=== PATIENT | female | born 1970 | race Caucasian/White ===

== ENCOUNTER 2016-11-30 10:29 | Emergency (ER) | payer BC, MEDICAID ==
[2016-11-30 11:02] LABS: URINE APPEARANCE CLEAR; URINE BILIRUBIN NEGATIVE (NEGATIVE); URINE BLOOD TRACE-I (NEGATIVE); URINE COLOR YELLOW; URINE GLUCOSE (UA) NEGATIVE (NEGATIVE); URINE KETONE NEGATIVE (NEGATIVE); URINE LEUKOCYTE ESTERASE NEGATIVE (NEGATIVE); URINE NITRITE NEGATIVE (NEGATIVE); URINE PROTEIN NEGATIVE (NEGATIVE); URINE UROBILINOGEN 0.2 E.U./dL (0.20 - 1.00)
--- NOTE | 2016-11-30 11:04 | Emergency Department Record ---
History of Present Illness - General Chief complaint: Flank Pain Stated complaint: FLANK PAIN Time Seen by Provider: 11/30/16 11:03 Source: Patient Mode of Arrival: Ambulatory Limitations: No limitations - History of Present Illness Initial comments: The patient is here due to 5 day hx of R flank pain. The pain is sharp and stabbing and intermittent. She also has had a few days of dysuria and urinary urgency. She has had a week of intermittent nausea, vomiting, and diarrhea. The patient was seen is an UC and sent to the ER to R/O a kidney stone. MD Complaint: Dysuria Onset/Timin -: Days(s) Radiation: R flank Severity: Moderate Severity scale (1-10): 7 Quality: Cramping, Dull, Sharp Consistency: Constant Improves with: Other Worsens with: Movement Associated Symptoms: Fever/chills, Nausea/vomiting - Related Data Home Medications Medication Instructions Recorded Confirmed Last Taken Naratriptan HCl [Amerge] 2.5 mg PO PRN 11/30/16 Unknown Trazodone HCl 100 mg PO PRN 11/30/16 Unknown Previous Rx's Medication Instructions Recorded Nitrofurantoin [place] [Macrobid] 100 mg PO BID #10 capsule 11/30/16 Allergies Allergy/AdvReac Type Severity Reaction Status Date / Time morphine Allergy Mild RASH Unverified 03/29/16 14:03 Travel Screening - Travel/Exposure Within Last 30 Days Have you traveled within the last 30 days?: No - Travel/Exposure Within Last Year Have you traveled outside the [place] in the last year?: No - Additonal Travel Details Have you been exposed to anyone with a communicable illness?: No - Travel Symptoms Symptom Screening: None Review of Systems Constitutional: Denies: Chills, Fever Eyes: Denies: Eye discharge ENT: Reports: Congestion Respiratory: Denies: Cough, Dyspnea Endocrine: Reports: Fatigue Gastrointestinal: Reports: Diarrhea, Nausea, Vomiting Past Medical History - SOCIAL HISTORY Smoking Status: Current every day smoker Alcohol Use: None Drug Use: None - RESPIRATORY Hx Respiratory Disorders: No - CARDIOVASCULAR Hx Cardio Disorders: No Hx Irregular Heartbeat: Yes (was taking lisinopril) Comment:: previous stress test - NEURO Hx Neuro Disorders: Yes Hx Headaches: Yes Hx TIA: Yes (2013) Comment:: no complications - GI Hx GI Disorders: No - Hx Genitourinary Disorders: Yes Hx Kidney Stones: Yes - ENDOCRINE Hx Endocrine Disorders: No Comment:: pt thinks she is hypoglycemic - MUSCULOSKELETAL Hx Musculoskeletal Disorders: No Comment:: dislocated lt shoulder 05/28/15 - PSYCH Hx Psych Problems: No - HEMATOLOGY/ONCOLOGY Hx Hematology/Oncology Disorders: No Family Medical History Any Significant Family History?: Yes Hx Diabetes: Mother Hx Heart Disease: Mother Hx HTN: Mother Hx Stroke: Mother Physical Exam - General General Appearance: Alert, Oriented x3, Cooperative, No acute distress - Head Head exam: Atraumatic, Normocephalic, Normal inspection - Eye Eye exam: Normal appearance, PERRL - ENT ENT exam: Normal exam, Mucous membranes moist, Normal external ear exam, Normal orophraynx, TM's normal bilaterally Throat exam: Tonsillar erythema. negative: Normal inspection, Tonsillomegaly, Tonsillar exudate - Neck Neck exam: Normal inspection, Full ROM. negative: Tenderness - Respiratory Respiratory exam: Normal lung sounds bilaterally. negative: Respiratory distress - Cardiovascular Cardiovascular Exam: Regular rate, Normal rhythm, Normal heart sounds - GI/Abdominal GI/Abdominal exam: Soft, Normal bowel sounds. negative: Tenderness - Extremities Extremities exam: Normal inspection, Full ROM, Normal capillary refill. negative: Tenderness - Back Back exam: Reports: CVA tenderness (R), Paraspinal tenderness (R lower lateral Lumbar paraspinal area.). Denies: Normal inspection, CVA tenderness (L) - Neurological Neurological exam: Alert, Normal gait. negative: Abnormal gait, Motor sensory deficit Course Vital Signs 11/30/16 10:33 Temperature 97.6 F Pulse Rate 87 Respiratory 20 Rate Blood Pressure 129/93 Pulse Ox 100 - Reevaluation(s) Reevaluation #1: The patient is resting comfortably at this time and denies any pain. At this time she is refusing her abdominal CT to R/O any [place]. I explained to her that I do not believe she has a stone but it is possible. By NOT doing the CT we could be missing and infected ureter blockage which if not treated properly can lead to sepsis, disability and . The patient understands the risks and accepts the risks. She also understands that we cannot be held liable for NOT diagnosing that problem. She is to F/U with her PCP next week if not better and return to the ER if worse. 11/30/16 12:05 Medical Decision Making - Data Complexity MDM Data: Labs Ordered and/or Reviewed - Lab Data Result diagrams: 11/30/16 11:33 11/30/16 11:33 Disposition Disposition: Discharge Clinical Impression: Cystitis Disposition: Home, Self-Care Condition: (1) Good Instructions: Urinary Tract Infection in Women (ED) Additional Instructions: Please take Motrin or Advil for pain and take the Macrobid. Please see your PCP if not better in 3 days. Return to the ER for any increased pain, fever, or vomiting. Prescriptions: Nitrofurantoin [place] [Macrobid] 100 mg PO BID #10 capsule Forms: Patient Portal Access Time of Disposition: 12:09
[2016-11-30 11:10] LABS: HCG,QUALITATIVE URINE NEGATIVE (NEGATIVE); URINE BACTERIA FEW
[2016-11-30 11:40] LABS: BASO % 0.5 % (0-6); EOS % 1.5 % (0-6); GRAN % 64.8 % (47-80); HEMATOCRIT 38.8 % (35.0-47.0); HEMOGLOBIN 12.9 gm/dl (11.6-16.0); LYMPH % 27.3 % (16-45); MEAN CELL VOLUME 87.8 fl (81-97); MEAN CORPUSCULAR HEMOGLOBIN 29.2 pg (27-33); MEAN CORPUSCULAR HGB CONC 33.2 g/dl (32-36); MEAN PLATELET VOLUME 9.5 fl (7.4-10.4); MONO % 5.9 % (0-9); PLATELET COUNT 259 K/uL (130-400); RED BLOOD COUNT 4.42 M/uL (3.80-5.40); RED CELL DISTRIBUTION WIDTH 13.2 % (11.5-14.5); WHITE BLOOD COUNT W/O DIFF 7.5 K/uL (4.2-12.2)
[2016-11-30 11:53] LABS: ALB/GLOB RATIO 2.3 (1.1-1.8); ALBUMIN 4.4 gm/dL (3.5-5.0); ALKALINE PHOSPHATASE 47 U/L (38-126); ALT/SGPT 34 U/L (9-52); ANION GAP 7.6 (7-16); AST/SGOT 18 U/L (14-36); BLOOD UREA NITROGEN 14 mg/dL (7-17); CARBON DIOXIDE 26.4 mmol/L (22-30); CREATININE 0.6 mg/dL (0.52-1.04); EST GLOMERULAR FILTRATION RATE > 60 ml/min; GLUCOSE,RANDOM 109 mg/dL (70-110); TOTAL PROTEIN 6.3 gm/dL (6.3-8.2)
== END 2016-11-30 12:19 | disposition home or self-care (01) ==
LOC: ER 10:29
DX: N30.01 Acute cystitis with hematuria (principal); R11.2 Nausea with vomiting, unspecified; R19.7 Diarrhea, unspecified
CPT/HCPCS: 80053; 81001; 81025; 85025; 99283

== ENCOUNTER 2017-10-07 16:26 | Emergency (ER) | payer BC ==
[2017-10-07 17:14] LABS: URINE APPEARANCE CLEAR; URINE BILIRUBIN NEGATIVE (NEGATIVE); URINE BLOOD NEGATIVE (NEGATIVE); URINE COLOR YELLOW; URINE GLUCOSE (UA) NEGATIVE (NEGATIVE); URINE KETONE NEGATIVE (NEGATIVE); URINE LEUKOCYTE ESTERASE NEGATIVE (NEGATIVE); URINE NITRITE NEGATIVE (NEGATIVE); URINE UROBILINOGEN 0.2 E.U./dL (0.20 - 1.00)
[2017-10-07 17:17] LABS: HCG,QUALITATIVE URINE NEGATIVE (NEGATIVE)
[2017-10-07 17:22] LABS: BARBITURATE SCREEN URINE NOT DETECTED; TRICYCLIC ANTIDEPRESSANT SCRN NOT DETECTED
[2017-10-07 17:23] LABS: AMPHETAMINE SCREEN URINE NOT DETECTED; BENZODIAZEPINE SCREEN URINE NOT DETECTED; COCAINE SCREEN URINE NOT DETECTED; METHADONE SCREEN URINE NOT DETECTED; METHAMPHETAMINE SCREEN DETECTED; OPIATE SCREEN URINE NOT DETECTED; OXYCODONE SCREEN URINE NOT DETECTED; PHENCYCLIDINE SCREEN URINE NOT DETECTED; PROPOXYPHENE SCREEN URINE NOT DETECTED; THC SCREEN URINE NOT DETECTED
[2017-10-07 17:28] LABS: URINE AMORPHOUS SEDIMENT 2+; URINE BACTERIA FEW; URINE EPITHELIAL CELLS 0 - 2 (FEW); URINE RBC 0 - 2 (NONE SEEN); URINE WBC 0 - 2 (0-2/hpf)
[2017-10-07] MEDS ORDERED: ONDANSETRON HCL IV 4 MG/2 ML VIAL IVP ONE (17:52)
[2017-10-07] MEDS ORDERED: HYOSCYAMINE SULFATE ODT 0.125 MG TAB.SUBL SL ONE ×2 (17:52→19:46)
[2017-10-07] MEDS ORDERED: KETOROLAC 30 MG/ML VIAL IVP ONE (17:52)
--- NOTE | 2017-10-07 17:57 | Emergency Department Record ---
History of Present Illness - General Chief Complaint: Abdominal Pain Stated Complaint: ABDOMINAL PAIN, LOWER BACK PAIN,VOMITTING Time Seen by Provider: 10/07/17 17:23 Source: Patient Mode of Arrival: Ambulatory Limitations: No limitations - History of Present Illness Initial Comments: 47 yo female presents to ED foe evaluation of left upper quadrant pain radiating to the left flank that began several days ago. Patient reports vomiting "bile", denies change in stools or urinary symptoms. Patient denies fevers, chills, or recent illness. Patient denies previous history of kidney stones. Patient does report hysterectomy previously. Patient denies health problems at her baseline, but does report recent dental procedures x 2 last week , is concerned that she may be "swallowing the infection and making me sick". MD Complaint: Abdominal pain Onset/Timin -: Days(s) Location: L Flank, LUQ Radiation: Back, Epigastric Migration to: No migration Severity: Moderate Quality: Sharp Consistency: Constant Improves With: Nothing Worsens With: Nothing Associated Symptoms: Nausea, Vomiting - Related Data Patient : No Previous Rx's Medication Instructions Recorded Hyoscyamine Sulfate [Levsin-Sl] 0.25 mg SL Q8H PRN #20 tab.subl 10/07/17 Ondansetron [Zofran Odt] 4 mg PO Q8H PRN #20 tab.rapdis 10/07/17 Allergies Allergy/AdvReac Type Severity Reaction Status Date / Time morphine Allergy Mild RASH Unverified 07/10/17 08:34 Travel Screening - Travel/Exposure Within Last 30 Days Have you traveled within the last 30 days?: No Review of Systems Constitutional: Denies: Chills, Fever, Malaise, Night sweats Eyes: Denies: Eye discharge, Eye pain ENT: Denies: Congestion, Ear pain, Epistaxis Respiratory: Denies: Cough, Dyspnea Cardiovascular: Denies: Chest pain, Dyspnea on exertion Endocrine: Denies: Fatigue, Heat or cold intolerance Gastrointestinal: Reports: Abdominal pain, Nausea, Vomiting. Denies: Constipation, Diarrhea Genitourinary: Denies: Frequency, Incontinence, Retention, Urgency Musculoskeletal: Reports: Back pain. Denies: Arthralgia Skin: Denies: Bruising, Change in color Neurological: Denies: Abnormal gait, Confusion, Headache, Tingling, Tremors Psychiatric: Denies: Anxiety Hematological/Lymphatic: Denies: Anemia, Blood Clots Past Medical History - SOCIAL HISTORY Smoking Status: Current every day smoker Alcohol Use: None Drug Use: None - RESPIRATORY Hx Respiratory Disorders: No - CARDIOVASCULAR Hx Cardio Disorders: Yes Hx Irregular Heartbeat: Yes (was taking lisinopril) Comment:: previous stress test - NEURO Hx Neuro Disorders: Yes Hx Headaches: Yes Hx TIA: Yes (2013) Comment:: no complications - GI Hx GI Disorders: No - Hx Genitourinary Disorders: Yes Hx Kidney Stones: Yes - ENDOCRINE Hx Endocrine Disorders: No Comment:: pt thinks she is hypoglycemic - MUSCULOSKELETAL Hx Musculoskeletal Disorders: No Comment:: dislocated lt shoulder 05/28/15 - PSYCH Hx Psych Problems: No - HEMATOLOGY/ONCOLOGY Hx Hematology/Oncology Disorders: No Family Medical History Any Significant Family History?: No Hx Diabetes: Mother Hx Heart Disease: Mother Hx HTN: Mother Hx Stroke: Mother Physical Exam - General General Appearance: Alert, Oriented x3, Cooperative, Mild distress, Anxious Limitations: No limitations - Head Head exam: Atraumatic, Normocephalic, Normal inspection Head exam detail: negative: Abrasion, Contusion, Ren's sign, General tenderness, Hematoma, Laceration - Eye Eye exam: Normal appearance. negative: Conjunctival injection, Periorbital swelling, Periorbital tenderness, Scleral icterus - ENT Ear exam: negative: Auricular hematoma, Auricular trauma Nasal Exam: negative: Active bleeding, Discharge, Dried blood, Foreign body Mouth exam: negative: Drooling, Laceration, Muffled voice, Tongue elevation Throat exam: Normal inspection. negative: Tonsillar exudate, R peritonsillar mass, L peritonsillar mass - Neck Neck exam: Normal inspection. negative: Meningismus, Tenderness - Respiratory Respiratory exam: Normal lung sounds bilaterally. negative: Respiratory distress, Rhonchi, Stridor, Wheezes - Cardiovascular Cardiovascular Exam: Regular rate, Normal rhythm, Normal heart sounds - GI/Abdominal GI/Abdominal exam: Soft, Tenderness (MIld TTP LUQ on exmaination, no rebound or gurading symptoms are noted on examination.). negative: Pulsatile mass, Rebound , Rigid - Rectal Rectal exam: Deferred - exam: Deferred - Extremities Extremities exam: Normal inspection. negative: Calf tenderness, Pedal edema, Tenderness - Back Back exam: Denies: CVA tenderness (R), CVA tenderness (L) - Neurological Neurological exam: Alert, Normal gait, Oriented X3 - Psychiatric Psychiatric exam: Anxious - Skin Skin exam: Normal color. negative: Abrasion Type of lesion: negative: abrasion Course Vital Signs 10/07/17 17:10 Temperature 97.4 F L Pulse Rate 85 Respiratory 13 Rate Blood Pressure 120/88 Pulse Ox 95 - Reevaluation(s) Reevaluation #1: 10/07/17 18:48 CT abdomen and pelvis: No acute process, mild thickening of the mid-distal gastric wall and antrum suggesting possible gastritis vs. under-distension. Reevaluation #2: 10/07/17 19:14 Labs are pending, patient reassessed and reports that she is feeling much better. Reevaluation #3: 10/07/17 19:32 Labs reviewed and are grossly unremarkable for an acute process. Patient reports that her pain symptoms continue to improve, appears stable for discharge at this time with Zofran and Levsin for recurrent pain/nausea symptoms. Medical Decision Making - Lab Data Result diagrams: 10/07/17 18:40 10/07/17 18:40 Lab Results 10/07/17 10/07/17 Range/Units 17:00 17:00 Urine Color Yellow Urine Appearance Clear Urine pH >=9.0 (5.0-8.0) Ur Specific [place] 1.010 (1.002-1.030) Urine Protein 30 mg/dl H (NEGATIVE) Urine Glucose (UA) Negative (NEGATIVE) Urine Ketones Negative (NEGATIVE) Urine Blood Negative (NEGATIVE) Urine Nitrite Negative (NEGATIVE) Urine Bilirubin Negative (NEGATIVE) Urine Urobilinogen 0.2 (0.20 - 1.00) E.U./dL Ur Leukocyte Esterase Negative (NEGATIVE) Urine RBC 0 - 2 (NONE SEEN) Urine WBC 0 - 2 (0-2/hpf) Ur Epithelial Cells 0 - 2 (FEW) Amorphous Sediment 2+ Urine Bacteria Few Urine HCG, Qual Negative (NEGATIVE) Urine Opiates Screen Not detected Ur Oxycodone Screen Not detected Urine Methadone Screen Not detected Ur Propoxyphene Screen Not detected Ur Barbituates Screen Not detected Ur Tricyclics Screen Not detected Ur Phencyclidine Scrn Not detected Ur Amphetamine Screen Not detected U Methamphetamines Scrn Detected U Benzodiazepines Scrn Not detected Urine Cocaine Screen Not detected Urine Cannabis Screen Not detected Disposition Disposition: Discharge Clinical Impression: Abdominal pain Qualifiers: Abdominal location: generalized Qualified Code(s): R10.84 - Generalized abdominal pain Disposition: Home, Self-Care Condition: (2) Stable Instructions: Abdominal Pain (ED) Additional Instructions: Return to ED if your symptoms worsen or if you have any concerns. Zofran and Levsin as directed. Follow-up with your family doctor in 3-5 days as directed. Prescriptions: Hyoscyamine Sulfate [Levsin-Sl] 0.25 mg SL Q8H PRN #20 tab.subl PRN Reason: Abdominal Pain Ondansetron [Zofran Odt] 4 mg PO Q8H PRN #20 tab.rapdis PRN Reason: Nausea/Vomiting Forms: Patient Portal Access Time of Disposition: 19:35 Quality - Quality Measures Quality Measures: N/A - Blood Pressure Screening Does Patient Have Any of the Following: No Blood Pressure Classification: Pre-Hypertensive BP Reading Systolic Measurement: 120 Diastolic Measurement: 88 Screening for High Blood Pressure: < Pre-Hypertensive BP, F/U Documented > [ [id number]] Pre-Hypertensive Follow-up Interventions: Referral to alternative/primary care provider.
[2017-10-07] MEDS ORDERED: 0.9 % SODIUM CHLORIDE 1000ML 1,000 ML IV SCH (18:00)
[2017-10-07 19:13] LABS: BASO % 0.5 % (0-6); EOS % 1.2 % (0-6); GRAN % 58.7 % (47-80); HEMATOCRIT 43.6 % (35.0-47.0); HEMOGLOBIN 14.6 gm/dl (11.6-16.0); LYMPH % 29.3 % (16-45); MEAN CELL VOLUME 88.8 fl (81-97); MEAN CORPUSCULAR HEMOGLOBIN 29.7 pg (27-33); MEAN CORPUSCULAR HGB CONC 33.5 g/dl (32-36); MEAN PLATELET VOLUME 9.4 fl (7.4-10.4); MONO % 10.3 % (0-9); PLATELET COUNT 303 K/uL (130-400); RED BLOOD COUNT 4.91 M/uL (3.80-5.40); RED CELL DISTRIBUTION WIDTH 13.1 % (11.5-14.5); WHITE BLOOD COUNT W/O DIFF 6.6 K/uL (4.2-12.2)
[2017-10-07 19:31] LABS: ALB/GLOB RATIO 1.7 (1.1-1.8); ALBUMIN 4.5 g/dL (4.0-5.0); ALKALINE PHOSPHATASE 49 U/L (35-104); ALT/SGPT 12 U/L (<33); AST/SGOT 16 U/L (10.0-35.0); BLOOD UREA NITROGEN 15 mg/dL (6-20); CREATININE 0.6 mg/dL (0.5-0.9); EST GLOMERULAR FILTRATION RATE > 60 mL/min; GLUCOSE,RANDOM 74 mg/dL (74-109); LIPASE 41 U/L (13-60); TOTAL PROTEIN 7.1 g/dL (6.6-8.7)
--- NOTE | 2017-10-08 09:50 | CT SCAN REPORT ---
EXAM: CT OF THE ABDOMEN AND PELVIS WITHOUT CONTRAST HISTORY: LEFT UPPER QUADRANT ABDOMINAL PAIN WITH VOMITING FOR TWO DAYS. TECHNIQUE: Helical CT examination of the abdomen and pelvis was performed without oral or intravenous contrast administration. Lack of oral and IV contrast utilization limits evaluation of bowel and solid viscera respectively. Comparison: CT of the abdomen and pelvis without contrast dated 03/10/15. FINDINGS: The lung bases are clear. No pleural or pericardial effusion. The heart is not enlarged. No definite new focal abnormality demonstrated within the liver, spleen, pancreas, adrenal glands, nor kidneys though evaluation of the pancreas is somewhat limited by lack of intraabdominal and retroperitoneal fat. The gallbladder is unremarkable and no biliary ductal dilatation is seen. There is mild atherosclerosis without aneurysmal dilatation of the abdominal aorta nor iliac arteries. No intraabdominal nor retroperitoneal lymphadenopathy is seen. No pelvic mass, lymphadenopathy, or free pelvic fluid. The uterus is surgically absent. No intrinsic urinary bladder abnormality is demonstrated though evaluation is limited by lack of distention. No gross bowel dilatation is seen. There is apparent mild wall thickening of the mid to distal gastric body and possibly antrum. This may just relate to incomplete distention though a mucosal abnormality such as gastritis would be difficult to exclude. No other evidence of bowel wall thickening. No extraluminal air. No lytic or blastic bone lesion. There are degenerative changes of the lower lumbar spine most pronounced at the L5-S1 level where they are mild to moderate in degree. IMPRESSION: 1. LACK OF ORAL AND IV CONTRAST UTILIZATION WELL LACK OF INTRAABDOMINAL AND RETROPERITONEAL FAT LIMITS EVALUATION. 2. APPARENT MILD WALL THICKENING OF THE MID TO DISTAL GASTRIC BODY AND POSSIBLY THE ANTRUM. THIS MAY RELATE TO INCOMPLETE DISTENTION THOUGH GASTRITIS WOULD BE DIFFICULT TO EXCLUDE. 3. NO OTHER EVIDENCE OF INTRAABDOMINAL NOR INTRAPELVIC PATHOLOGY. 4. DEGENERATIVE CHANGES OF THE LOWER LUMBAR SPINE. JOB NUMBER: [id number] [facility]
== END 2017-10-07 19:45 | disposition home or self-care (01) ==
LOC: ER 16:26
DX: R10.84 Generalized abdominal pain (principal); R11.2 Nausea with vomiting, unspecified; M54.2 Cervicalgia; Z79.899 Other long term (current) drug therapy
CPT/HCPCS: 99284 ×2; 96374; 96375; 83690; 85025; 80053; 81001; 81025; 80305; 74176; J1980; J1885; J2405; J7030